=== PATIENT | male | born 1965 | race American Indian/Alaskan Native ===

== ENCOUNTER 2018-05-17 06:11 | Day surgery (SDC) | payer BC ==
[2018-05-17] MEDS ORDERED: ANCEF/STERILE WATER 2 GM/20 ML IV NR (07:00)
[2018-05-17] MEDS ORDERED: NACL BACTERIOSTATIC INFILTRATI ONE (07:07)
[2018-05-17] MEDS ORDERED: SUBLIMAZE ONE ×2 (07:08→08:42)
[2018-05-17] MEDS ORDERED: DIPRIVAN 10 MG/ML IV ONE (07:09)
--- NOTE | 2018-05-17 07:21 | Anesthesia Consultation ---
Anesthesia Consult and Med Hx Date of service: 05/17/18 - Airway Anesthetic Teeth Evaluation: Good ROM Head & Neck: Adequate Mental/Hyoid Distance: Adequate Mallampati Class: Class II Intubation Access Assessment: Good - Pulmonary Exam CTA: Yes - Cardiac Exam Cardiac Exam: RRR - Pre-Operative Health Status ASA Pre-Surgery Classification: ASA3 Proposed Anesthetic Plan: General - Pulmonary Hx Smoking: Yes Hx Sleep Apnea: No (HIGH RISK ON SCREENING) - Cardiovascular System Hx Hypertension: Yes - Endocrine Hx Non-Insulin Dependent Diabetes: Yes - Other Systems Hx Alcohol Use: Yes (OCCASIONAL) Hx Cancer: No Hx Obesity: Yes
--- NOTE | 2018-05-17 07:21 | Anesthesia Day of Surgery ---
Anesthesia Day of Surgery - Day of Surgery Patient Examined: Yes Patient H&P Reviewed: Yes Patient is NPO: Yes
[2018-05-17] MEDS ORDERED: HumuLIN R IV NR (07:30)
[2018-05-17] MEDS: VERSED IV NR ×2 (07:35→11:25)
[2018-05-17 07:53] LABS: Basophils # (Auto) 0.1 K/mm3 (0.0-0.1); Basophils % (Auto) 0.8 % (0.0-1.8); Eosinophils # (Auto) 0.1 K/mm3 (0.0-0.4); Eosinophils % (Auto) 1.9 % (0.0-4.3); Hematocrit 39.5 % (35.5-45.6); Hemoglobin 13.7 gm/dl (11.8-15.2); Lymphocytes # (Auto) 1.6 K/mm3 (1.2-5.4); Lymphocytes % (Auto) 20.5 % (13.4-35.0); Mean Corpuscular HGB Conc 35 % (32-34); Mean Corpuscular Hemoglobin 29 pg (28-32); Mean Corpuscular Volume 85 fl (84-94); Monocytes # (Auto) 0.6 K/mm3 (0.0-0.8); Monocytes % (Auto) 7.7 % (0.0-7.3); Platelet Count 176 K/mm3 (140-440); Red Blood Count 4.65 M/mm3 (3.65-5.03); Red Cell Distribution Width 14.1 % (13.2-15.2)
[2018-05-17] MEDS ORDERED: NACL 0.9% IR ONE (07:58)
[2018-05-17] MEDS ORDERED: PEPCID PO NR (08:00)
[2018-05-17] MEDS ORDERED: NACL 0.9% 1000 ML 1,000 ML IV SCH (08:00)
[2018-05-17] MEDS ORDERED: XYLOCAINE MPF 2% ONE ×2 (08:42→09:12)
[2018-05-17] MEDS ORDERED: ZOFRAN ONE (09:13)
--- NOTE | 2018-05-17 10:08 | Operative Report ---
PREOPERATIVE DIAGNOSIS: Keloid of chest x 2. POSTOPERATIVE DIAGNOSIS: Keloid of chest x 2. PROCEDURE: 1. Excision, benign neoplasm of upper chest/neck greater than 4 cm. 2. Excision of benign neoplasm of chest/abdomen greater than 4 cm. 3. Adjacent tissue transfer, closure of chest and neck approximately 250cm2 SURGEON: Angel Chapin MD FUR SCRAPER: Sheldon Avina CSA DESCRIPTION OF PROCEDURE: The patient was brought in the operating room, placed on the table in supine position. Following administration of general anesthesia, the chest and neck were prepped with Betadine solution, draped in usual sterile manner. A #10 blade scalpel was used to circumferentially excise both keloid of the upper chest and neck and the keloid of the lower sternum extending on to the abdomen. Dissection was carried down through subcutaneous tissue down to the level of the fascia with specimens excised and sent to pathology as a specimen. Hemostasis controlled using electrocautery. Extensive undermining was performed creating 2 large chest flaps and the intervening bridge of skin between the neck and the upper chest/neck, keloid and the lower sternal/abdominal keloid was divided and skin flaps were raised with rotation and advancement across the defect over two 10 mm CLARE drains secured in place with interrupted and running subcuticular 2-0 Monocryl sutures. Mastisol, Steri-Strips, and sterile dressings applied. The patient tolerated the procedure well and returned to recovery room in stable condition. JOB# [id number] FTW/CT LEGER
[2018-05-17] MEDS ORDERED: NORMODYNE IV ONE ×3 (11:31→13:00)
[2018-05-17] MEDS: DILAUDID IV PRN ×3 (11:50→12:28)
[2018-05-17] MEDS ORDERED: DILAUDID ONE (11:52)
[2018-05-17] MEDS ORDERED: NORCO 7.5/325 PO SCH (13:40)
[2018-05-17 19:26] VITALS: BP 147/86
--- NOTE | 2018-05-17 19:34 | Post Anesthesia Evaluation ---
- Post Anesthesia Evaluation Patient Participated: Yes Airway Patent: Yes Stable Respiratory Function: Yes Nausea/Vomiting: No Temp > 96.8F: Yes Pain Manageable: Yes Adequeate Hydration: Yes Anesthesia Complications: No
== END 2018-05-17 15:09 | disposition home or self-care (01) ==
LOC: OR 06:11
PROVIDERS: ATTEND Plastic Surgery
DX: L91.0 Hypertrophic scar (principal); L72.0 Epidermal cyst; I10 Essential (primary) hypertension; E66.9 Obesity, unspecified; E11.9 Type 2 diabetes mellitus without complications; Z68.42 Body mass index [BMI] 45.0-49.9, adult
CPT/HCPCS: 14301; 14302; 36415; 82962; 85025; 88305; J0690; J1170; J2250; J2405; J2704; J3010; J7030; J1815